=== PATIENT | female | born 1940 | race Caucasian/White ===

== ENCOUNTER 2022-02-10 14:50 | Outpatient (CLI) | payer MEDICARE | END 2022-02-10 14:51 | disposition home or self-care (01) | LOC: TBSIIMAG 14:50 | PROVIDERS: ATTEND Neurological Surgery | DX: M47.22 Other spondylosis with radiculopathy, cervical region (principal) | CPT/HCPCS: 72050 ==

== ENCOUNTER 2022-03-23 10:38 | Observation (INO) | payer MEDICARE, BC ==
[2022-03-23] MEDS ORDERED: Thrombin 5000 UNITS/5 ML VIAL ONE (13:09)
[2022-03-23] MEDS ORDERED: Neomycin-Polymyxin 1 ML AMP ONE ×2 (13:09→13:10)
[2022-03-23] MEDS ORDERED: fentaNYL Citrate/PF 100 MCG/2 ML SYRINGE ONE (13:14)
[2022-03-23] MEDS ORDERED: Phenylephrine 10 MG/ML VIAL ONE (13:22)
[2022-03-23] MEDS ORDERED: Sodium Chloride 0.9% 100 ML ONE (13:29)
[2022-03-23] MEDS ORDERED: CEFAZOLIN 2 GM VIAL ONE (13:29)
[2022-03-23] MEDS ORDERED: PROPOFOL 200 MG/20 ML VIAL ONE (13:41)
[2022-03-23] MEDS ORDERED: Rocuronium Bromide 10 MG/ML (10ML VIAL) ONE (13:41)
[2022-03-23] MEDS ORDERED: Dexamethasone 20 MG/5 ML VIAL ONE (13:41)
[2022-03-23] MEDS ORDERED: Ondansetron PF 4 MG/2 ML Vial ONE (13:41)
[2022-03-23] MEDS ORDERED: ePHEDrine 50 MG/ML VIAL ONE (13:41)
[2022-03-23] MEDS ORDERED: Bupivacaine/Epinephrine 0.25% 30 ML VIAL ONE (15:11)
[2022-03-23] MEDS ORDERED: SUGAMMADEX SODIUM 200 MG/2 ML VIAL ONE (16:33)
[2022-03-23] MEDS ORDERED: Prochlorperazine 10 MG/2 ML VIAL IM PRN (16:42)
[2022-03-23] MEDS ORDERED: Acetaminophen 325 MG TAB PO PRN (16:42)
[2022-03-23] MEDS ORDERED: Ondansetron PF 4 MG/2 ML Vial IVP PRN (16:42)
[2022-03-23] MEDS ORDERED: diphenhydrAMINE 50 MG/ML VIAL IVP PRN (16:42)
[2022-03-23] MEDS ORDERED: Mag-Al 1200 mg/1200 mg/30 ML UDCUP PO PRN (16:42)
[2022-03-23] MEDS ORDERED: HYDROcodone/Acetaminophen 10/325 mg Tablet PO PRN (16:42)
[2022-03-23] MEDS ORDERED: Milk Of Magnesia 30 ML UDCUP PO PRN (16:42)
[2022-03-23] MEDS ORDERED: Cyclobenzaprine 10 MG TAB PO PRN (16:42)
[2022-03-23] MEDS ORDERED: Acetaminophen/Codeine 30-300mg Tablet PO PRN (16:42)
[2022-03-23] MEDS ORDERED: Promethazine HCl 25 MG/ML VIAL ONE ×2 (16:54→18:05)
[2022-03-23] MEDS ORDERED: FENTANYL 50 MCG/ML VIAL 50 MCG/ML VIAL ONE ×4 (16:54→19:23)
[2022-03-23] MEDS ORDERED: Morphine Sulfate 2 MG/ML SYRINGE SLOW IVP PRN (16:58)
[2022-03-23] MEDS ORDERED: Promethazine HCl 25 MG/ML VIAL IM PRN (16:58)
[2022-03-23] MEDS ORDERED: Ondansetron HCl/PF 4 MG/2 ML Vial IVP PRN (16:58)
[2022-03-23] MEDS ORDERED: PACU-Morphine 4MG/ML VIAL SLOW IVP PRN (16:58)
[2022-03-23] MEDS ORDERED: HYDROmorphone 2 MG/ML VIAL SLOW IVP PRN (16:58)
[2022-03-23] MEDS ORDERED: Promethazine HCl 25 MG/ML VIAL IVPB PRN (16:58)
[2022-03-23] MEDS ORDERED: Morphine 4 MG/ML VIAL ONE (17:05)
[2022-03-23] MEDS ORDERED: Morphine 4 MG/ML VIAL SLOW IVP PRN (17:21)
[2022-03-23] MEDS: Sodium Chloride 0.9% 1,000 ML IV SCH (20:55)
[2022-03-23] MEDS: CEFAZOLIN 2 GM in Sodium Chloride 0.9% 100 ML IVPB SCH (22:12)
[2022-03-23 22:27] VITALS: BMI 22.3
[2022-03-24 01:18] LABS: SARS-CoV-2 NAA Rapid Test Not Detected (NotDetected)
[2022-03-24] MEDS: HYDROcodone/Acetaminophen 7.5/325 mg Tablet PO PRN ×2 (05:21→10:20)
[2022-03-24] MEDS: CEFAZOLIN 2 GM in Sodium Chloride 0.9% 100 ML IVPB SCH (05:22)
[2022-03-24] MEDS: Sodium Chloride 0.9% 1,000 ML IV SCH (06:53)
[2022-03-24 08:06] VITALS: TEMP 98.2
[2022-03-24] MEDS ORDERED: Levothyroxine Sodium 75 MCG TAB PO SCH (09:00)
[2022-03-24] MEDS ORDERED: Montelukast Sodium 10 mg Tablet PO SCH (09:00)
[2022-03-24 11:39] VITALS: BP 123/71
[2022-03-27] MEDS ORDERED: FLU VACC QS2022-23(65YR UP)/PF 240 MCG/0.7 ML SYRINGE IM ONE (09:00)
== END 2022-03-24 13:41 | disposition home or self-care (01) ==
LOC: SDC 10:38 → SJJU 16:42
PROVIDERS: ADMIT Neurological Surgery; ATTEND Neurological Surgery
PROC: 0RG10A0 Fusion of Cervical Vertebral Joint with Interbody Fusion Device, Anterior Approach, Anterior Column, Open Approach (ICD-10-PCS; principal; 2022-03-23)
DX: M50.122 Cervical disc disorder at C5-C6 level with radiculopathy (principal); M48.02 Spinal stenosis, cervical region; M48.8X2 Other specified spondylopathies, cervical region; I25.10 Atherosclerotic heart disease of native coronary artery without angina pectoris; E03.9 Hypothyroidism, unspecified; M19.90 Unspecified osteoarthritis, unspecified site; M81.0 Age-related osteoporosis without current pathological fracture; Z85.3 Personal history of malignant neoplasm of breast; Z79.83 Long term (current) use of bisphosphonates; Z79.890 Hormone replacement therapy; Z79.899 Other long term (current) drug therapy; Z20.822 Contact with and (suspected) exposure to COVID-19
CPT/HCPCS: 20930; 20936; 22551; 22845; 22853; 96374; 96376; C1713 ×2; C1776; G0378 ×2; J3010; U0002; J1100; J2270; J2370; J2405; J2550; J2704; J3490; J7050